=== PATIENT | female | born 1970 ===

== ENCOUNTER 2023-08-26 20:48 | Emergency (ER) | payer MEDICAID ==
[~2023-08-26] VITALS: Ht 157.5 cm; Wt 53.1 kg
[2023-08-26] MEDS ORDERED: OXYCODONE/APAP 5-325 MG TABLET PO ONE (21:00)
[2023-08-26] MEDS ORDERED: OXYCODONE/APAP 5-325 MG TABLET ONE (21:03)
[2023-08-26] MEDS ORDERED: ACET1TAB23 PO (23:10)
[2023-08-26 23:29] VITALS: BP 110/73; TEMP 98.9; O2SAT 100
== END 2023-08-26 23:29 | disposition home or self-care (01) ==
LOC: ER 20:50
DX: S20.214A Contusion of middle front wall of thorax, initial encounter (principal); Z79.899 Other long term (current) drug therapy; X58.XXXA Exposure to other specified factors, initial encounter; Y93.89 Activity, other specified; Y92.89 Other specified places as the place of occurrence of the external cause; Y99.8 Other external cause status
CPT/HCPCS: 71045; 71120; A4606; A4663